=== PATIENT | female | born 1960 | race Caucasian/White ===

== ENCOUNTER 2016-06-24 10:21 | Outpatient (CLI) | payer MEDICARE, MEDICAID ==
[~2016-06-24 10:21] MED LIST: B-12 5,000 MCG1 EACH SL; CALCIUM + VITA1 EAC2 PO; COENZYME Q10 PO; DIOVAN80 MG ORAL; GLUCOPHAGE500 MG ORAL; IBUPROFEN600 MG ORAL; IRON325 M1 PO; LEXAPRO20 MG ORAL; LOPID600 MG ORAL; MULTI VITAMIN1 EACH PO; OMEPRAZOLE20 M2 PO; PROBIOTIC1 EAC1 PO; PROTONIX40 MG ORAL; TAMOXIFEN CITRA10 MG PO; TRULICITY0.75 MG/0. SQ
--- NOTE | 2016-06-24 14:11 | Diagnostic Imaging Report ---
Indication: Osteopenia Technique: Transaxial images of the L1, L2, and L3 vertebral bodies obtained in a Siemens sensation [address] Regions of interest were drawn for both cortical and medullary portions of the bone. Average bone then calculated. Total Dose length Product (DLP): [address] Dose Index Volume (CTDIvol): Support 4, 4.5, 4.9, 5.7, 4.7 mGy Findings: The patient's bone mineral density is 247 mg Ca-TAI/ml. The T score is 3.2 this means that the patient's average bone mineral density is 3.2 standard deviations less than a typical 20-year-old female. The patient's Z score is 5.2. This means that the patient's average bone mineral density is 5.2 standard deviations greater than age-matched controls. Impression: Bone Mineral density no more than 10% below a normal 20 year old female. Patient is considered normal by WHO criteria. Insufficiency fracture risk is low. The CT scanner at [facility] is accredited by the [employer] and the scans are performed using protocols designed to limit radiation exposure to as low as reasonably achievable to attain images of sufficient resolution adequate for diagnostic evaluation.
== END 2016-06-24 12:00 | disposition home or self-care (01) ==
LOC: CAT 10:21
DX: M81.0 Age-related osteoporosis without current pathological fracture (principal); M25.569 Pain in unspecified knee
CPT/HCPCS: 77078

== ENCOUNTER 2016-07-01 11:34 | Emergency (ER) | payer MEDICARE, MEDICAID ==
[~2016-07-01] VITALS: Ht 165.1 cm; Wt 81.6 kg
--- NOTE | 2016-07-01 12:18 | Emergency Room Report ---
History of Present Illness General Chief Complaint: Upper Extremity Injury Source: Patient (Lizz Canales) Present Illness HPI 55-year-old female presents emergency department complaining of 8/10 in severity right wrist pain and swelling x3 days. Patient denies trauma or fall. Patient reports history of osteoporosis. Patient denies bruising, erythema, increased temperature palpation. Patient states pain is exacerbated upon bending the right wrist or complete straightening of the right wrist. Patient denies lesions, bleeding, skin color changes. Patient states she took to 200 mg ibuprofen this a.m. without relief.Denies numbness tingling or loss of sensation or gross motor movements of the extremities, incontinence of bowel or bladder. Denies CP, Palpitations, LOC, AMS, dizziness, Changes in Vision, Sensation, paresthesias, or a sudden severe headache. (Lizz Canales) Allergies: Coded Allergies: SULFA (SULFONAMIDE ANTIBIOTICS) (Verified Allergy, Mild, RASH, 02/28/11) PENICILLINS (Verified Allergy, Unknown, 07/21/12) RASH LATEX (Verified Allergy, Itching, 07/21/12) Patient History Past Medical History: see triage record Past Surgical History: none Pertinent Family History: none Now: No Immunizations: UTD Reviewed Nursing Documentation: PMH: Agreed, PSxH: Agreed (Lizz Canales) Nursing Documentation-PMH Hx Cardiac Problems: No Hx Hypertension: Yes - high cholesterol Hx Pacemaker: No Hx Asthma: No Hx COPD: No Hx Diabetes: No Hx Cancer: No Hx Gastrointestinal Problems: No Hx Dialysis: No History Of Psychiatric Problem: No Hx Neurological Problems: No Hx Cerebrovascular Accident: No Hx Seizures: No (Lizz Canales) Review of Systems All Other Systems: negative except mentioned in HPI (Lizz Canales) Physical Exam Vital Signs Date Time Temp Pulse Resp B/P Pulse Ox O2 Delivery O2 Flow Rate FiO2 07/01/16 11:51 98.1 82 16 130/70 98 Sp02 EP Interpretation: reviewed, normal General Appearance: no apparent distress, alert, GCS 15, non-toxic Head: normocephalic, atraumatic Eyes: bilateral eye PERRL, bilateral eye normal inspection ENT: hearing grossly normal, normal pharynx, no angioedema, normal voice Neck: full range of motion, supple/symm/no masses Respiratory: chest non-tender, lungs clear, normal breath sounds, speaking full sentences Cardiovascular #1: regular rate, rhythm, no edema Cardiovascular #2: 2+ radial (R), 2+ radial (L) Musculoskeletal: back normal, gait/station normal, normal range of motion, tender - TTP to the volar right wrist, mild swelling noted, no bruises, no obvious deformity, good cap. refill, sensation and pulses intact. FROM with pain of flexion. Neurologic: alert, oriented x3, responsive, motor strength/tone normal, sensory intact, speech normal Psychiatric: judgement/insight normal, memory normal, mood/affect normal Skin: normal color, no rash, warm/dry, well hydrated (Lizz Canales) Medical Decision Making PA Attestation Dr. Frances is my supervising Physician whom patient management has been discussed with. (Lizz Canales) Diagnostic Impression: Primary Impression: Calcification of soft tissue Additional Impression: Wrist pain, right ER Course Pt. presents to the ED c/o right wrist pain and swelling x3 days denies trauma or fall. Ddx considered but are not limited to Fracture, dislocation, contusion, Sprain/ Strain/Spasm, Epidural abscess, Neoplastic mets. Vital signs: are WNL, pt. is afebrile H&PE are most consistent with tendonitis of right wrist. will r/o fractures with imaging. ORDERS: - X-ray Right wrist 3 views - negative for fx, Dislocation, or significant soft tissue injury, per preliminary read in ED by Dr. Frances ED INTERVENTIONS: - 650mg Tylenol PO - Right wrist Splint applied by technical rep. Pt. remains neurovascularly intact. DISCHARGE: At this time pt. is stable for d/c to home. Will provide printed patient care instructions, and any necessary prescriptions. Care plan and follow up instructions have been discussed with the patient prior to discharge. (Lizz Canales) ER Course Scribe documentation reviewed by me and is accurate. (Miguel Frances M.D.) Last Vital Signs Date Time Temp Pulse Resp B/P Pulse Ox O2 Delivery O2 Flow Rate FiO2 07/01/16 11:51 98.1 82 16 130/70 98 (Lizz Canales) Disposition: HOME, SELF-CARE Condition: Stable Scripts Acetaminophen* (TYLENOL EXTRA STRENGTH*) 500 Mg Tablet 500 MG ORAL Q6H, #20 TAB 0 Refills Prov: Lizz Canales 07/01/16 Patient Instructions: Wrist Sprain, WRIST SPLINT, Velcro Additional Instructions: Take medications as directed. Follow up with PCP in 3-5 days Return sooner to ED if new symptoms occur, or current symptoms become worse. - Please note that this Emergency Department Report was dictated using [employer] sprinkler inspector technology software, occasionally this can lead to erroneous entry secondary to interpretation by the dictation equipment. Lizz Canales July 01, 2016 12:18 Miguel Frances M.D. July 01, 2016 21:33
[2016-07-01] MEDS ORDERED: TYLENOL EXTRA500 MG ORAL (13:01)
[2016-07-01 13:17] VITALS: BP 120/80
--- NOTE | 2016-07-01 13:36 | Diagnostic Imaging Report ---
Indications: Nontraumatic right wrist pain and swelling Technique: 3 views right wrist. Findings: Comparison: None Soft tissues are mildly, diffusely swollen. No fracture, dislocation, joint space widening , lytic destruction, periosteal reaction , soft tissue foreign body/gas, or other acute changes are identified. A cluster of calcifications is present within the soft tissues immediately volar to the distal radius. No arthritic or other chronic changes are demonstrated. IMPRESSION: Diffuse soft tissue swelling, nonspecific No other evidence of acute abnormality Volar soft tissue calcifications, nonspecific, may be dystrophic secondary to previous trauma or inflammation, or represent calcified soft tissue mass. Elective MRI may be of benefit in further evaluation, as clinically indicated..
== END 2016-07-01 13:20 | disposition home or self-care (01) ==
LOC: EMR 12:35
DX: M61.48 Other calcification of muscle, other site (principal); M25.531 Pain in right wrist; I10 Essential (primary) hypertension; Z88.2 Allergy status to sulfonamides; Z88.0 Allergy status to penicillin; Z91.040 Latex allergy status
CPT/HCPCS: 29260; 99283

== ENCOUNTER 2016-07-09 10:45 | Outpatient (CLI) | payer MEDICARE, MEDICAID ==
[~2016-07-09 10:45] MED LIST changes: +TYLENOL EXTRA500 MG ORAL
--- NOTE | 2016-07-09 14:09 | Diagnostic Imaging Report ---
Indication: Knee pain Technique: MRI of the right knee was imaged in a 1.5 Elayne magnet. Pulse sequences obtained include coronal T1 fast spin-echo, STIR, sagittal coronal and axial proton fast spin-echo with fat saturation, sagittal proton fast spin-echo. Comparison: None Findings: There is no joint effusion. The contour of the medial and lateral menisci appear normal. There is some internal signal within the menisci but there is no evidence of a tear. Bone marrow signal normal. Anterior and posterior cruciate ligaments are unremarkable in appearance. Medial collateral ligamentous complex and lateral lateral ligamentous complex appear normal. Articular cartilage is relatively well-preserved. Patellofemoral compartment is unremarkable. Extensor tendons are unremarkable. Impression: No internal derangement. Negative exam
--- NOTE | 2016-07-09 14:11 | Diagnostic Imaging Report ---
Indication: Knee pain Technique: MRI of the left knee was imaged in a 1.5 Elayne magnet. Pulse sequences obtained include coronal T1 fast spin-echo, STIR, sagittal coronal and axial proton fast spin-echo with fat saturation, sagittal proton fast spin-echo. Comparison: None Findings: Bone marrow signal and alignment appear normal. Articular cartilage is well preserved. There is no joint effusion or popliteal cyst. The menisci appear normal. Anterior posterior cruciate ligaments, extensor tendon mechanism, medial collateral ligament and lateral collateral structures are normal. There is no evidence of an osteochondral defect. Impression: Negative examination of the left knee
== END 2016-07-09 12:45 | disposition home or self-care (01) ==
LOC: MRI 10:45
DX: M25.562 Pain in left knee (principal); M25.561 Pain in right knee

== ENCOUNTER 2016-12-30 10:52 | Outpatient (CLI) | payer MEDICARE, MEDICAID ==
[2016-12-30 11:01] VITALS: BP 113/70
--- NOTE | 2016-12-30 14:09 | GI Initial Consult Note ---
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 The patient complains of heartburn, dysphagia when eating solid foods. States she is able to take thin and thick fluids down. Denies any cough or aspiration. Patient last colonoscopy was performed in 2013 with polypectomy x 4. The patient stated she had either a video swallow study at [facility] last week , but the results were unremarkable and that is the reason for her visit today. Home Meds Active Scripts Acetaminophen* (TYLENOL EXTRA STRENGTH*) 500 Mg Tablet, 500 MG ORAL Q6H, #20 TAB 0 Refills Prov:Lizz Canales 07/01/16 Ibuprofen* (MOTRIN*) 600 Mg Tablet, 600 MG ORAL Q8H Y for For Pain, #14 TAB Prov:EMMANUELLE HORNE M.D. 09/02/13 Reported Medications Pantoprazole* (PROTONIX*) 40 Mg Tablet.dr, 40 MG ORAL DAILY, TAB 09/13/15 Dulaglutide (Trulicity) 0.75 Mg/0.5 Ml Pen.injctr, 0.75 MG SQ ONCE A WEEK, EA 09/13/15 Calcium Carb & Cit/Vitamin D3 (CALCIUM + VITAMIN D3 CAPLET) 1 Each Tablet.er, 1 EACH PO 07/21/12 Cyanocobalamin/Cobamamide (B-12 5,000 MCG SUBLINGUAL TAB) 1 Each Tab.subl, 1 EACH SL 07/21/12 Ubidecarenone/Vitamin E Mixed (COQ10 SG 100 SOFTGEL) 1 Each Capsule, 1 EACH PO 07/21/12 Omeprazole (OMEPRAZOLE) 20 Mg Capsule.dr, 20 MG PO DAILY 06/04/12 Escitalopram Oxalate* (LEXAPRO*) 20 Mg Tablet, 20 MG ORAL DAILY, #10 TAB 06/04/12 Ferrous Sulfate (IRON) 325 Mg Tablet, 325 MG PO DAILY 06/04/12 Multivitamin (MULTI VITAMIN DAILY) 1 Each Tablet, 1 EACH PO DAILY 06/04/12 Lactobacillus Rhamnosus Gg (PROBIOTIC) 1 Each Capsule, 1 EACH PO DAILY 06/04/12 Valsartan (DIOVAN) 80 Mg Tab, 80 MG ORAL DAILY 06/04/12 Gemfibrozil* (LOPID*) 600 Mg Tablet, 600 MG ORAL TWICE A DAY, #20 TAB 06/04/12 Metformin Hcl* (GLUCOPHAGE*) 500 Mg Tablet, 1000 MG ORAL TWICE A DAY, #20 TAB 06/04/12 Tamoxifen Citrate* (NOLVADEX*) 10 Mg Tablet, 20 MG PO DAILY 06/04/12 Med list reviewed/reconciled: Yes Allergies: Coded Allergies: SULFA (SULFONAMIDE ANTIBIOTICS) (Verified Allergy, Mild, RASH, 02/28/11) PENICILLINS (Verified Allergy, Unknown, 07/21/12) RASH LATEX (Verified Allergy, Itching, 07/21/12) Patient History PMH Narrative HTN, Depression sleep apnea DM Breast CA Past Surgical History: Chemo 2008 Family History Narrative Mother >> leukemia, iron deficiency sister >> colon CA Social History: Reports: other - coffee Review of Systems All Other Systems: negative except mentioned in HPI Physical Exam T 98.3 BP 113/70 P 85 93 RA Sp02 EP Interpretation: reviewed, normal General Appearance: well appearing, no apparent distress, alert Head: normocephalic EENT: PERRL/EOMI, normal ENT inspection Neck: supple Respiratory: normal breath sounds, no respiratory distress Cardiovascular: normal rate Gastrointestinal: normal inspection, non tender, soft, normal bowel sounds, non -distended Rectal: deferred Genitourinary: no CVA tenderness Musculoskeletal: normal inspection, back normal Neurologic: normal inspection, alert, oriented x3, responsive Psychiatric: normal inspection, judgement/insight normal, memory normal Skin: normal inspection, normal color, no rash, warm/dry, palpation normal, well hydrated Lymphatic: normal inspection, no adenopathy GI: Plan Problems: (1) Dysphagia (2) GERD (gastroesophageal reflux disease) (3) Encounter for diagnostic endoscopy (4) Family hx of colon cancer Plan hx of colonic polyps EGD/colonoscopy scheduled for 01/05/17 - CLD & (Nulytely/Suprep/Moviprep) prep instructions given and acknowledged by patient. - NPO @ [place] day prior procedure explained. Seen with Dr. Mishra. Thank you for this patient referral. Elvia Castellanos N.P. Dec 30, 2016 14:09
== END 2016-12-30 11:50 | disposition home or self-care (01) ==
LOC: PAN 10:52
DX: R13.10 Dysphagia, unspecified (principal); K21.9 Gastro-esophageal reflux disease without esophagitis; Z80.0 Family history of malignant neoplasm of digestive organs; Z88.2 Allergy status to sulfonamides; Z88.0 Allergy status to penicillin; Z91.040 Latex allergy status; Z80.6 Family history of leukemia; I10 Essential (primary) hypertension; F32.9 Major depressive disorder, single episode, unspecified; G47.30 Sleep apnea, unspecified; E11.9 Type 2 diabetes mellitus without complications; Z85.3 Personal history of malignant neoplasm of breast
CPT/HCPCS: 99201

== ENCOUNTER 2017-01-05 10:15 | Day surgery (SDC) | payer MEDICARE, MEDICAID ==
[~2017-01-05] VITALS: Ht 157.5 cm; Wt 79.4 kg
[2017-01-05] VITALS (8 sets, daily range): BP systolic 95–121; BP diastolic 53–72
--- NOTE | 2017-01-05 06:51 | Anethesia Preoperative Eval ---
Anesthesia Pre-op PMH/ROS General Date of Evaluation: Jan 05, 2017 Time of Evaluation: 06:48 Anesthesiologist: dwight ASA Score: ASA 3 Mallampati Score Class I : Soft palate, uvula, fauces, pillars visible Class II: Soft palate, uvula, fauces visible Class III: Soft palate, base of uvula visible Class IV: Only hard plate visible Mallampati Classification: Class II Surgeon: jojo Diagnosis: dysphagia, hx/o colon polyps Surgical Procedure: egd/colonoscopy Anesthesia History: none Social History: smoking - nonsmoker Family History: no anesthesia problems Allergies: Coded Allergies: LACTOSE (Verified Allergy, Intermediate, diarhea, 01/05/17) LATEX (Verified Allergy, Intermediate, Itching, 01/05/17) SULFA (SULFONAMIDE ANTIBIOTICS) (Verified Allergy, Mild, RASH, 02/28/11) PENICILLINS (Verified Allergy, Unknown, 07/21/12) RASH TETRACYCLINES (Verified Allergy, Unknown, 01/05/17) Medications: see eMAR Past Medical History Pulmonary: Reports: CANDICE, other - bronchitis Gastrointestinal/Genitourinary: Reports: GERD, other - dysphagia, hx/o colon polyps, gastritis Endocrine: Reports: DM Hematology/Immune: Reports: anemia, other - breast cancer Musculoskeletal/Integumentary: Reports: OA Other: obesity Anesthesia Pre-op Phys. Exam Physician Exam Constitutional: NAD Neurologic: CN 2-12 intact Cardiovascular: RRR Respiratory: CTA Gastrointestinal: S/NT/ND Airway Exam Mallampati Score: Class II MO: full Neck: supple TMD: 2fb ROM: limited Anesthesia Pre-op A/P Risk Assessment & Plan Assessment: asa3 Plan: mac Status Change Before Surgery: No Pre-Antibiotics Drug: OLIVIA Culp Jan 05, 2017 06:51
--- NOTE | 2017-01-05 10:49 | Short Stay Surgery H&P ---
History of Present Illness History of Present Illness Chief Complaint see recent consult note HPI Kelly Palmer is a 56 year old female who was admitted on for Dysphegia/ Hx Of Colon Polyps Patient History Allergies: Coded Allergies: LACTOSE (Verified Allergy, Intermediate, diarhea, 01/05/17) LATEX (Verified Allergy, Intermediate, Itching, 01/05/17) SULFA (SULFONAMIDE ANTIBIOTICS) (Verified Allergy, Mild, RASH, 02/28/11) PENICILLINS (Verified Allergy, Unknown, 07/21/12) RASH TETRACYCLINES (Verified Allergy, Unknown, 01/05/17) PAST MEDICAL HISTORY: Past Surgeries: Relevant Family History: Colon cancer Social History: Medication History Scheduled Acetaminophen* (Tylenol Extra Strength*), 500 MG ORAL Q6H Dulaglutide (Trulicity), 0.75 MG SQ ONCE A WEEK, (Reported) Escitalopram Oxalate* (Lexapro*), 20 MG ORAL DAILY, (Reported) Ferrous Sulfate (Iron), 325 MG PO DAILY, (Reported) Gemfibrozil* (Lopid*), 600 MG ORAL TWICE A DAY, (Reported) Lactobacillus Rhamnosus Gg (Probiotic), 1 EACH PO DAILY, (Reported) Metformin Hcl* (Glucophage*), 1,000 MG ORAL TWICE A DAY, (Reported) Multivitamin (Multi Vitamin Daily), 1 EACH PO DAILY, (Reported) Omeprazole (Omeprazole), 20 MG PO DAILY, (Reported) Pantoprazole* (Protonix*), 40 MG ORAL DAILY, (Reported) Tamoxifen Citrate* (Nolvadex*), 20 MG PO DAILY, (Reported) Valsartan (Diovan), 80 MG ORAL DAILY, (Reported) Scheduled PRN Ibuprofen* (Motrin*), 600 MG ORAL Q8H PRN for For Pain Miscellaneous Medications Calcium Carb & Cit/Vitamin D3 (Calcium + Vitamin D3 Caplet), 1 EACH PO, ( Reported) Cyanocobalamin/Cobamamide (B-12 5,000 Mcg Sublingual Tab), 1 EACH SL, (Reported) Ubidecarenone/Vitamin E Mixed (Coq10 Sg 100 Softgel), 1 EACH PO, (Reported) Plan Attestation Are the patient's medical conditions optimized for surgery? REBEKA FOUNTAIN Jan 05, 2017 10:49
--- NOTE | 2017-01-05 10:50 | Pre-Procedure Note/Attestation ---
Pre-Procedure Note/Attestation Complete Prior to Procedure Planned Procedure: not applicable Procedure Narrative: esophagogastroduodenoscopy and colonoscopy Indications for Procedure Pre-Operative Diagnosis: dysphagia, screening colon Attestation I attest that I discussed the nature of the procedure; its benefits; risks and complications; and alternatives (and the risks and benefits of such alternatives ), prior to the procedure, with the patient (or the patient's legal pharmaceutical sales representative). I attest that, if there was a reasonable possibility of needing a blood transfusion, the patient (or the patient's legal pharmaceutical sales representative) was given the [facility] standardized written summary, pursuant to the [employer] Blood Safety Act ([place] Health and Safety Code # 1645, as amended). I attest that I re-evaluated the patient just prior to the surgery and that there has been no change in the patient's H&P, except as documented below: REBEKA FOUNTAIN Jan 05, 2017 10:50
[2017-01-05] MEDS ORDERED: Lidocaine 1% MPF 10mg/ml 5ml ONE (11:00)
[2017-01-05] MEDS ORDERED: Propofol 200mg/20ml IV ONE (11:00)
--- NOTE | 2017-01-05 12:09 | Endoscopy Procedure Note ---
Endoscopy Procedure Note Indication for Procedure: screening colon, GERD Procedures Performed: EGD, colonoscopy Operative Findings/Diagnosis: 3 colon polyps, gastritis Specimen: yes Pt Tolerated Procedure Well: Yes Estimated Blood Loss: none Anesthesiologist: sung Anesthesia: MAC Implant(s) used?: No 50 yrs or older w/o bx or poly: No 10yrs. F/U not recommended: Yes If not recommended, why?: Above average risk 10 yrs. F/U needed: Yes 18 years or older w/prev. colo: No REBEKA FOUNTAIN Jan 05, 2017 12:09
--- NOTE | 2017-01-05 13:11 | Immediate Post-Op Evaluation ---
Immediate Post-Op Evalulation Immediate Post-Op Evalulation Procedure: egd/colonoscopy Date of Evaluation: Jan 05, 2017 Time of Evaluation: 12:25 IV Fluids: 750ml 0.9ns Blood Products: none Estimated Blood Loss: negligible Blood Pressure Systolic: 100 Blood Pressure Diastolic: 54 Pulse Rate: 79 Respiratory Rate: 18 O2 Sat by Pulse Oximetry: 100 Temperature (Fahrenheit): 98.9 Pain Score (1-10): 0 Nausea: No Vomiting: No Complications none Patient Status: awake, reacts, patent Hydration Status: adequate Drug: OLIVIA Culp Jan 05, 2017 13:11
--- NOTE | 2017-01-05 13:12 | 48 Hour Post Anesthesia Eval ---
Post Anesthesia Evaluation Procedure: egd/colonoscopy Date of Evaluation: Jan 05, 2017 Time of Evaluation: 13:11 Blood Pressure Systolic: 111 0: 55 Pulse Rate: 77 Respiratory Rate: 18 Temperature (Fahrenheit): 98.9 O2 Sat by Pulse Oximetry: 100 Airway: patent Nausea: No Vomiting: No Pain Intensity: 0 Hydration Status: adequate Cardiopulmonary Status: stable Mental Status/LOC: patient returned to baseline Post-Anesthesia Complications: none Follow-up care needed: N/A OLIVIA MYERS Jan 05, 2017 13:12
[2017-01-05] MEDS ORDERED: fentaNYL 100 mcg/2 mL IV PRN (13:15)
[2017-01-05] MEDS ORDERED: Midazolam 2mg/2ml Inj IVP PRN (13:15)
[2017-01-05] MEDS ORDERED: DiphenhydrAMINE 50mg/ml Inj IVP PRN (13:15)
[2017-01-05] MEDS ORDERED: Atropine Inj 1mg/10ml Syr IV PRN (13:15)
--- NOTE | 2017-01-05 17:00 | Procedure Note ---
DATE OF PROCEDURE: 01/05/2017 SURGEON: Doron Mishra M.D. PROCEDURE: Upper endoscopy with biopsy and colonoscopy with snare polypectomy and biopsy. ANESTHESIA: Per Dr. Hale. INSTRUMENT: Olympus adult flexible upper endoscope and colonoscope. INDICATION: Screening colonoscopy evaluation, chronic GERD, and abdominal pain. The procedure, risks, benefits, and possible consequences, including hemorrhage, aspiration, perforation and infection, and alternative treatments, were explained to the patient/legal guardian by Dr. Doron Mishra and the patient/legal guardian understood and accepted these risks. DESCRIPTION OF PROCEDURE: After informed consent was obtained and the patient was adequately sedated, Olympus upper endoscope was advanced from mouth into the second portion of duodenum and retroflexion was performed in the stomach. The patient had diffuse atrophic gastritis. One polyp was seen in the body of the stomach, which was removed with the cold biopsy forceps technique. Also biopsy from the body and antrum was obtained to rule out H. pylori infection. At this time, the upper endoscope was retrieved and the patient was turned over for colonoscopy. First, a rectal exam was performed, which was normal. Then, the scope was advanced from the rectum into the cecum documented by appendiceal orifice, ileocecal valve, and right upper quadrant palpation. Quality of prep was good. The patient had three flat polyps, two in the transverse colon and one in the descending colon. Two of them, one in the descending and one in the transverse were removed with the snare polypectomy technique. These are flat, less than 1 cm and another polyp in the transverse colon, which was measured about 5 mm, was removed with the cold biopsy forceps technique. The rest of the exam grossly within normal limits. Retroflexion of rectum showed evidence of internal hemorrhoids. SUMMARY OF FINDINGS: 1. Atrophic gastritis, status post biopsy. 2. One gastric polyp removed. See above for details. 3. Three colonic polyps removed. See above for details. 4. Internal hemorrhoids. RECOMMENDATIONS: Follow up biopsies and treat accordingly. Doron Mishra M.D. DR: JASPAL JOB#: [id number] CC:
--- NOTE | 2017-01-06 15:42 | Cardiology Report ---
APPROVED REPORT EKG Measurement Heart [id number] VT [id number] Normal sinus rhythm Prolonged QT Abnormal ECG
== END 2017-01-05 13:35 | disposition home or self-care (01) ==
LOC: GAS 10:15
DX: Z12.11 Encounter for screening for malignant neoplasm of colon (principal); K21.9 Gastro-esophageal reflux disease without esophagitis; R10.9 Unspecified abdominal pain; K29.40 Chronic atrophic gastritis without bleeding; K31.7 Polyp of stomach and duodenum; K63.5 Polyp of colon; K64.8 Other hemorrhoids; G47.33 Obstructive sleep apnea (adult) (pediatric); E11.9 Type 2 diabetes mellitus without complications; Z85.3 Personal history of malignant neoplasm of breast; M19.90 Unspecified osteoarthritis, unspecified site; Z88.2 Allergy status to sulfonamides; Z88.0 Allergy status to penicillin; Z91.040 Latex allergy status; Z91.011 Allergy to milk products
CPT/HCPCS: 43239; 45380; 82962; 93005; J0171; J2704; 94003; 94150

== ENCOUNTER 2017-01-27 10:30 | Outpatient (CLI) | payer MEDICARE, MEDICAID ==
[2017-01-27 10:30] VITALS: BP 122/76
--- NOTE | 2017-01-27 11:24 | GI Progress Note ---
Assessment/Plan Problems: (1) GERD (gastroesophageal reflux disease) ICD Codes: K21.9 - Gastro-esophageal reflux disease without esophagitis SNOMED: 531217336 (2) Dysphagia ICD Codes: R13.10 - Dysphagia, unspecified SNOMED: 62537505, 651228742 (3) Family hx of colon cancer ICD Codes: Z80.0 - Family history of malignant neoplasm of digestive organs SNOMED: 808468275 Status: stable Status Narrative Seen with Dr. Mishra. Assessment/Plan EGD/colonoscopy SUMMARY OF FINDINGS reviewed with patient: 1. Atrophic gastritis, status post biopsy. 2. One gastric polyp removed. See above for details. 3. Three colonic polyps removed. See above for details. 4. Internal hemorrhoids. RECOMMENDATIONS: Follow up biopsies and treat accordingly. >> unremarkable cont PPI Rx baclofen 10 mg qhs RTC x 3 months/PRN Subjective Subjective GERD dysphagia with slight improvement, states she had a video swallow that showed reflux. R hand wart EGD/colonoscopy review Objective T 98.3 BP 122/78 P 81 General Appearance: WD/WN, no apparent distress, alert Cardiovascular: normal rate Respiratory/Chest: normal breath sounds, no respiratory distress Abdominal Exam: normal bowel sounds, non tender, soft Extremities: normal range of motion, non-tender Elvia Castellanos N.P. Jan 27, 2017 11:24
== END 2017-01-27 11:05 | disposition home or self-care (01) ==
LOC: PAN 10:30
DX: K21.9 Gastro-esophageal reflux disease without esophagitis (principal); R13.10 Dysphagia, unspecified; Z80.0 Family history of malignant neoplasm of digestive organs; K29.40 Chronic atrophic gastritis without bleeding; K63.5 Polyp of colon; K64.8 Other hemorrhoids
CPT/HCPCS: 99212

== ENCOUNTER 2017-06-18 14:13 | Outpatient (CLI) | payer MEDICARE, MEDICAID ==
--- NOTE | 2017-06-18 15:22 | GI Progress Note ---
Assessment/Plan Problems: (1) Diarrhea ICD Codes: R19.7 - Diarrhea, unspecified SNOMED: 69631332 (2) Black stool ICD Codes: K92.1 - Melena SNOMED: 221563394 (3) GERD (gastroesophageal reflux disease) ICD Codes: K21.9 - Gastro-esophageal reflux disease without esophagitis SNOMED: 663977478 Status: stable Status Narrative Seen with Dr. Mishra. Assessment/Plan lactose free diet black stools from medication rx Align RTC x 3 months or if diarrhea persists Subjective Subjective diarrhea multiple times past few days, black stools currently on Ferrous sulfate, pepto bismo nausea GERD, taking pepcid had EGD/colonoscopy last year 2016 Objective T 98.4 BP 127/74 P 96 96 RA General Appearance: WD/WN, no apparent distress, alert Cardiovascular: normal rate Respiratory/Chest: normal breath sounds, no respiratory distress Abdominal Exam: normal bowel sounds, non tender, soft Extremities: normal range of motion, non-tender Elvia Castellanos N.P. June 18, 2017 15:22
== END 2017-06-18 14:45 | disposition home or self-care (01) ==
LOC: PAN 14:13
DX: K21.9 Gastro-esophageal reflux disease without esophagitis (principal); K92.1 Melena; R19.7 Diarrhea, unspecified
CPT/HCPCS: 99211

== ENCOUNTER 2017-11-25 09:28 | Day surgery (SDC) | payer MEDICARE, MEDICAID ==
[~2017-11-25] VITALS: Ht 157.5 cm; Wt 76.2 kg
[2017-11-25] VITALS (10 sets, daily range): BP systolic 101–130; BP diastolic 66–80
--- NOTE | 2017-11-25 08:25 | Anethesia Preoperative Eval ---
Anesthesia Pre-op PMH/ROS General Date of Evaluation: Nov 25, 2017 Time of Evaluation: 10:50 Anesthesiologist: Arleth ASA Score: ASA 2 Mallampati Score Class I : Soft palate, uvula, fauces, pillars visible Class II: Soft palate, uvula, fauces visible Class III: Soft palate, base of uvula visible Class IV: Only hard plate visible Mallampati Classification: Class I Surgeon: Shadia Diagnosis: endometrial hyperplasia Surgical Procedure: D&C , hysteroscopy Anesthesia History: none Family History: no anesthesia problems Allergies: Coded Allergies: LACTOSE (Verified Allergy, Intermediate, diarhea, 01/05/17) LATEX (Verified Allergy, Intermediate, Itching, 01/05/17) SULFA (SULFONAMIDE ANTIBIOTICS) (Verified Allergy, Mild, RASH, 02/28/11) PENICILLINS (Verified Allergy, Unknown, 07/21/12) RASH TETRACYCLINES (Verified Allergy, Unknown, 01/05/17) Medications: see eMAR Patient NPO?: Yes NPO Date: Nov 24, 2017 NPO Time: 20:00 Past Medical History Cardiovascular: Reports: HTN Pulmonary: Reports: CANDICE - uses CPAP Gastrointestinal/Genitourinary: Reports: GERD Neurologic/Psychiatric: Denies: dementia, CVA, depression/anxiety, TIA, other Endocrine: Reports: DM HEENT: Reports: other; Denies: cataract (L), cataract (R), glaucoma, ATKA (L), ATKA (R) Hematology/Immune: Reports: other - Left side breast cancer Musculoskeletal/Integumentary: Reports: OA - knees, arms, other - sciatica PSxH Narrative: fibroids removed, left breast mastectomy Anesthesia Pre-op Phys. Exam Physician Exam Constitutional: NAD Neurologic: CN 2-12 intact Cardiovascular: RRR Respiratory: CTA Gastrointestinal: S/NT/ND Airway Exam Mallampati Score: Class I MO: full Neck: can extend wihtout issues ROM: full Teeth: intact Anesthesia Pre-op A/P Labs chart reviewed Accucheck BS = 139 Urine Test menopause Studies Pre-op Studies: EKG - NSR = 75 bpm Risk Assessment & Plan Assessment: A&Ox 4 Plan: General LMA Status Change Before Surgery: Carmen Mckeon CRNA Nov 25, 2017 08:25
--- NOTE | 2017-11-25 08:30 | Immediate Post-Op Evaluation ---
Immediate Post-Op Evalulation Immediate Post-Op Evalulation Procedure: D&C, hysteroscopy Date of Evaluation: Nov 25, 2017 Time of Evaluation: 12:35 IV Fluids: LR 800 ml Blood Products: 0 Estimated Blood Loss: 5 ml Urinary Output: 400ml via straight cath begnning of the case Blood Pressure Systolic: 130 Blood Pressure Diastolic: 80 Pulse Rate: 92 Respiratory Rate: 20 O2 Sat by Pulse Oximetry: 97 Temperature (Fahrenheit): 99 Pain Score (1-10): 0 Nausea: No Vomiting: No Complications none Patient Status: awake, reacts, patent Hydration Status: adequate Drug: Mefoxin 2 gm iv Given Within 1 Hr of Incision: Yes Time Given: 12:00 Carmen Reinoso CRNA Nov 25, 2017 08:30
[~2017-11-25 09:28] MED LIST changes: +B-12 5,000 MCG1 EACH PO; -B-12 5,000 MCG1 EACH SL; +LOSARTAN POTASS25 MG ORAL; +Lidocaine 1% MPF 10mg/ml 5ml ONE; +Propofol 200mg/20ml IV ONE; +cefOXitin Sod 2 GM in D5W 110 ML IVPB ONE
[2017-11-25] MEDS ORDERED: fentaNYL 100 mcg/2 mL IV ONE (10:11)
[2017-11-25] MEDS ORDERED: Midazolam 2mg/2ml Inj ONE (10:11)
[2017-11-25] MEDS ORDERED: PEPCID AC10 MG PO (10:53)
[2017-11-25] MEDS ORDERED: ONGLYZA5 MG PO (10:53)
[2017-11-25] MEDS ORDERED: GARLIC1 EAC1 PO (10:54)
[2017-11-25] MEDS ORDERED: fish oil PO (10:55)
[2017-11-25] MEDS ORDERED: NS Irrig 1000ml ONE (11:00)
[2017-11-25] MEDS ORDERED: LR 1000ml ONE (11:00)
[2017-11-25] MEDS ORDERED: Sterile Water Irrig 1000ml IRRIG ONE (11:00)
[2017-11-25] MEDS ORDERED: cefOXitin 2gm Inj ONE (11:46)
[2017-11-25] MEDS ORDERED: Silver Nitrate Stick TOPIC ONE (12:22)
[2017-11-25] MEDS ORDERED: D5 1/2NS 1,000 ML IV SCH ×2 (12:30→12:45)
[2017-11-25] MEDS ORDERED: Norco 5mg/325mg tab ORAL PRN ×2 (12:30→12:45)
--- NOTE | 2017-11-25 13:22 | 48 Hour Post Anesthesia Eval ---
Post Anesthesia Evaluation Procedure: D&C, hysteroscopy Date of Evaluation: Nov 25, 2017 Time of Evaluation: 13:20 Blood Pressure Systolic: 123 0: 78 Pulse Rate: 88 Respiratory Rate: 20 Temperature (Fahrenheit): 99 O2 Sat by Pulse Oximetry: 99 Airway: patent Nausea: No Vomiting: No Hydration Status: adequate Mental Status/LOC: patient returned to baseline Post-Anesthesia Complications: none noted Follow-up care needed: patient intructions given Carmen Reinoso CRNA Nov 25, 2017 13:22
--- NOTE | 2017-11-29 22:23 | Pre-Procedure Note/Attestation ---
Pre-Procedure Note/Attestation Complete Prior to Procedure Planned Procedure: not applicable Procedure Narrative: Hysteroscopy, D&C, Endometrial Polypectomy - multiple Indications for Procedure Pre-Operative Diagnosis: Endometrial polyp Attestation I attest that I discussed the nature of the procedure; its benefits; risks and complications; and alternatives (and the risks and benefits of such alternatives ), prior to the procedure, with the patient (or the patient's legal wine sales representative). I attest that, if there was a reasonable possibility of needing a blood transfusion, the patient (or the patient's legal wine sales representative) was given the [facility] standardized written summary, pursuant to the Rick Abel Blood Safety Act ([place] Health and Safety Code # 1645, as amended). I attest that I re-evaluated the patient just prior to the surgery and that there has been no change in the patient's H&P, except as documented below:NONE ELDA GARCÍA Nov 29, 2017 22:23
--- NOTE | 2017-11-29 22:25 | Brief Operative Note ---
Immediate Post Operative Note Operative Note Pre-op Diagnosis: Endometrial polyp Procedure: D&C, Hysteroscopy, ECC, EMC, Multiple Polypectomy Post-op Diagnosis: Multiple Endometrial Polyps Post-op Diagnosis: same as pre-op Findings: consistent w/pre-op dx studies Surgeon: Elda García MD Anesthesia: general Specimen: yes Complications: none Condition: stable Fluids: LR @ 100 cc / hr Estimated Blood Loss: minimal Implant(s) used?: No ELDA GARCÍA Nov 29, 2017 22:25
--- NOTE | 2017-11-30 00:15 | Operative Note - Dictated ---
DATE OF OPERATION: 11/25/2017 PREOPERATIVE DIAGNOSIS: Uterine polyp. POSTOPERATIVE DIAGNOSIS: Uterine polyp. PROCEDURE PERFORMED: Video hysteroscopy with uterine polypectomy. SURGEON: Vipul Reno M.D. ANESTHESIA: General. ANESTHESIOLOGIST: Carmen Reinoso CRNA PROCEDURE IN DETAIL: After all the appropriate consents were signed, the patient was brought to the operating room, placed on the table in supine position. General anesthesia was induced without complication. The patient was then placed in a dorsal lithotomy position and prepped and draped in the usual fashion. The patient was examined. The cervix was identified and dilated to 8 mm Hegar. The uterine cavity was then entered with a video hysteroscope and hysteroscopy revealed endometrial polyp extending from the anterior wall of the uterus and partially protruding into the endocervix. At this time, under direct visualization, the endometrial polyp was grasped, and using a traction-countertraction technique, the polyp was removed from the cavity. Behind the endometrial polyp, however, there appeared to be an additional polyp just distal to the cervix and deeper into the cavity. This polyp was also grasped using traction-countertraction technique, removed from the cavity. Once this was completely removed, the specimen was submitted to pathology. Endocervical curettage was performed followed by endometrial curettage. The patient was then once again evaluated, the operative site was fully hemostatic. No additional polyps or endometrial pathology was noted. Instruments were removed, and the patient was placed in the supine position. The patient was awakened from general anesthesia and brought to the recovery room in excellent condition. She tolerated the procedure very well. Vipul Reno M.D. DR: CHARLENE JOB#: [id number] CC:
== END 2017-11-25 15:10 | disposition home or self-care (01) ==
LOC: SUR 09:28
DX: N84.0 Polyp of corpus uteri (principal); E11.9 Type 2 diabetes mellitus without complications; J45.909 Unspecified asthma, uncomplicated; G47.30 Sleep apnea, unspecified; F32.9 Major depressive disorder, single episode, unspecified; E78.00 Pure hypercholesterolemia, unspecified; I34.0 Nonrheumatic mitral (valve) insufficiency; I65.23 Occlusion and stenosis of bilateral carotid arteries; Z88.0 Allergy status to penicillin; Z88.2 Allergy status to sulfonamides; Z88.1 Allergy status to other antibiotic agents; Z91.040 Latex allergy status
CPT/HCPCS: 58558; 82962; J0694; J2250; J2405; J2704; J3010; 94003; 94150

== ENCOUNTER 2018-03-09 10:13 | Outpatient (CLI) | payer MEDICARE, MEDICAID ==
[~2018-03-09 10:13] MED LIST changes: +GARLIC1 EAC1 PO; -Lidocaine 1% MPF 10mg/ml 5ml ONE; +ONGLYZA5 MG PO; +PEPCID AC10 MG PO; -Propofol 200mg/20ml IV ONE; -cefOXitin Sod 2 GM in D5W 110 ML IVPB ONE; +fish oil PO
[2018-03-09 12:57] LABS: BASOPHILS % (AUTO) 0.6 % (0.0-2.0); EOSINOPHILS % (AUTO) 2.5 % (0.0-3.0); HEMATOCRIT 34.5 % (37.0-47.0); HEMOGLOBIN 11.8 G/DL (12.0-16.0); LYMPHOCYTES % (AUTO) 30.9 % (20.0-45.0); MEAN CORPUSCULAR VOLUME 88 FL (80-99); MONOCYTES % (AUTO) 10.2 % (1.0-10.0); NEUTROPHILS % (AUTO) 55.8 % (45.0-75.0); PLATELET COUNT 250 K/UL (150-450); RED BLOOD COUNT 3.91 M/UL (4.20-5.40); RED CELL DISTRIBUTION WIDTH 12.9 % (11.6-14.8); WHITE BLOOD COUNT 4.7 K/UL (4.8-10.8)
[2018-03-09 13:17] LABS: ALANINE AMINOTRANSFERASE 26 U/L (12-78); ALBUMIN 3.7 G/DL (3.4-5.0); ALKALINE PHOSPHATASE 28 U/L (46-116); ANION GAP 10 mmol/L (5-15); ASPARTATE AMINO TRANSFERASE 17 U/L (15-37); BILIRUBIN,TOTAL 0.3 MG/DL (0.2-1.0); BLOOD UREA NITROGEN 11 mg/dL (7-18); CALCIUM 9.6 MG/DL (8.5-10.1); CARBON DIOXIDE 27 MMOL/L (21-32); CHLORIDE 104 MMOL/L (98-107); CREATININE 0.6 MG/DL (0.55-1.30); POTASSIUM 4.1 MMOL/L (3.5-5.1); SODIUM 141 MMOL/L (136-145)
[2018-03-09 13:38] VITALS: BP 113/73
--- NOTE | 2018-03-09 14:51 | GI Progress Note ---
Assessment/Plan Problems: (1) Abdominal bloating ICD Codes: R14.0 - Abdominal distension (gaseous) SNOMED: 489856818 (2) GERD (gastroesophageal reflux disease) ICD Codes: K21.9 - Gastro-esophageal reflux disease without esophagitis SNOMED: 466267380 (3) Diarrhea ICD Codes: R19.7 - Diarrhea, unspecified SNOMED: 19873343 Status: stable Status Narrative Seen with Dr. Mishra Assessment/Plan Abdominal pelvis CT rule out cancer Labs drawn today; CBC, CMP, celiac panel, CEA Prescription for Xifaxan given Return to clinic in 2 weeks The patient was seen and examined at bedside and all new and available data was reviewed in the patients chart. I agree with the above findings, impression and plan. (Patient seen earlier today. Signature stamp does not reflect patient encounter time.). - Doron Mishra MD Subjective Subjective Patient has complaint of diarrhea, approximately 3-4 bowel movements per day. Documented as a [place] stool type #5 Patient is currently trying lactose-free diet She complains of abdominal bloating and belching Complains of weight loss Objective Last 24 Hour Vital Signs Date Time Temp Pulse Resp B/P (MAP) Pulse Ox O2 Delivery O2 Flow Rate FiO2 03/09/18 13:38 97.6 79 16 113/73 97 Weight 169 pounds Laboratory Tests Test 03/09/18 10:55 White Blood Count 4.7 K/UL (4.8-10.8) L Red Blood Count 3.91 M/UL (4.20-5.40) L Hemoglobin 11.8 G/DL (12.0-16.0) L Hematocrit 34.5 % (37.0-47.0) L Mean Corpuscular Volume 88 FL (80-99) Mean Corpuscular Hemoglobin 30.3 PG (27.0-31.0) Mean Corpuscular Hemoglobin Concent 34.3 G/DL (32.0-36.0) Red Cell Distribution Width 12.9 % (11.6-14.8) Platelet Count 250 K/UL (150-450) Mean Platelet Volume 5.5 FL (6.5-10.1) L Neutrophils (%) (Auto) 55.8 % (45.0-75.0) Lymphocytes (%) (Auto) 30.9 % (20.0-45.0) Monocytes (%) (Auto) 10.2 % (1.0-10.0) H Eosinophils (%) (Auto) 2.5 % (0.0-3.0) Basophils (%) (Auto) 0.6 % (0.0-2.0) Sodium Level 141 MMOL/L (136-145) Potassium Level 4.1 MMOL/L (3.5-5.1) Chloride Level 104 MMOL/L (98-107) Carbon Dioxide Level 27 MMOL/L (21-32) Anion Gap 10 mmol/L (5-15) Blood Urea Nitrogen 11 mg/dL (7-18) Creatinine 0.6 MG/DL (0.55-1.30) Estimat Glomerular Filtration Rate > 60 mL/min (>60) Glucose Level 152 MG/DL (74-106) H Calcium Level 9.6 MG/DL (8.5-10.1) Total Bilirubin 0.3 MG/DL (0.2-1.0) Aspartate Amino Transf (AST/SGOT) 17 U/L (15-37) Alanine Aminotransferase (ALT/SGPT) 26 U/L (12-78) Alkaline Phosphatase 28 U/L (46-116) L Total Protein 7.5 G/DL (6.4-8.2) Albumin 3.7 G/DL (3.4-5.0) Globulin 3.8 g/dL Albumin/Globulin Ratio 1.0 (1.0-2.7) Carcinoembryonic Antigen Pending Immunoglobulin A Pending Endomysial IgA Antibody Pending Tissue Transglutaminase IgA Ab Pending Anti-Gliadin IgA Antibody Pending General Appearance: WD/WN, no apparent distress, alert Cardiovascular: normal rate Respiratory/Chest: normal breath sounds, no respiratory distress Abdominal Exam: normal bowel sounds, non tender, soft Extremities: normal range of motion, non-tender Bailey Castellanos NP Mar 09, 2018 14:51
== END 2018-03-09 10:43 | disposition home or self-care (01) ==
LOC: PAN 10:13
DX: R14.0 Abdominal distension (gaseous) (principal); K21.9 Gastro-esophageal reflux disease without esophagitis; R19.7 Diarrhea, unspecified
CPT/HCPCS: 36415; 80053; 82378; 82784; 83516; 83520; 85025; 86255; G0463; 99213

== ENCOUNTER → 2018-03-11 | Outpatient (CLI) | payer MEDICARE, MEDICAID ==
--- NOTE | 2018-03-11 14:29 | Diagnostic Imaging Report ---
Clinical Indication: Pain, stomach gas, diarrhea, unwanted weight loss Technique: Patient given oral contrast. IV administration nonionic contrast. Venous phase spiral acquisition obtained through the abdomen and pelvis. Multiplanar reconstructions were generated. Total dose length product 724.08 mGycm. CTDIvol(s) 14.12 mGy. Dose reduction achieved using automated exposure control Comparison: 03/11/2017 Findings: The appendix is normal. There are are colonic diverticula. No evidence of diverticulitis. No small bowel distention. Contrast has not traversed the entirety of the small bowel. No free or loculated intraperitoneal gas or fluid is evident. There is a tiny fat-containing umbilical hernia. The distal esophagus, stomach, duodenum are unremarkable. The liver is hypoattenuating, consistent with fatty change. This is likely less striking than on the prior exam, however. No focal hepatic abnormality. The gallbladder demonstrates a folded appearance, as previously. No definite gallstones. No biliary ductal dilatation. The pancreas, spleen, adrenals, kidneys are all unremarkable. No retroperitoneal or mesenteric mass or adenopathy.. Uterus is enlarged with multiple fibroids, appearance similar to the prior exam. Calcifications are again demonstrated in the right ovary, more abundant than previously. No pelvic mass or adenopathy otherwise. The included lung bases demonstrate posterior dependent atelectatic changes on the right. The bones are unremarkable except for mild spondylosis changes. The highest cuts demonstrate left anterior chest wall asymmetry consistent with post mastectomy changes described previously Impression: No acute abnormality Fatty liver. This is slightly less severe than on the previous study of 03/04/2011 Enlarged fibroid uterus, also previously described Progressive right ovarian calcifications Postsurgical changes of the left breast The CT scanner at [facility] is accredited by the [employer] and the scans are performed using protocols designed to limit radiation exposure to as low as reasonably achievable to attain images of sufficient resolution adequate for diagnostic evaluation.
== END | disposition home or self-care (01) ==
LOC: CAT 10:08
DX: R19.7 Diarrhea, unspecified (principal); R63.4 Abnormal weight loss; K76.0 Fatty (change of) liver, not elsewhere classified; D25.9 Leiomyoma of uterus, unspecified; N83.8 Other noninflammatory disorders of ovary, fallopian tube and broad ligament; Z98.890 Other specified postprocedural states
CPT/HCPCS: 74177; Q9967

== ENCOUNTER 2018-07-27 10:10 | Outpatient (CLI) | payer MEDICARE, MEDICAID ==
--- NOTE | 2018-07-27 10:30 | General Progress Note ---
Assessment/Plan Problem List: (1) Family hx of colon cancer ICD Codes: Z80.0 - Family history of malignant neoplasm of digestive organs SNOMED: 445254540 (2) Colon polyps ICD Codes: K63.5 - Polyp of colon SNOMED: 99775570 (3) GERD (gastroesophageal reflux disease) ICD Codes: K21.9 - Gastro-esophageal reflux disease without esophagitis SNOMED: 866271457 (4) Abdominal bloating ICD Codes: R14.0 - Abdominal distension (gaseous) SNOMED: 402797979 (5) Lactase deficiency ICD Codes: E73.9 - Lactose intolerance, unspecified SNOMED: 426041916, 959060812 (6) Diarrhea ICD Codes: R19.7 - Diarrhea, unspecified SNOMED: 60692260 Assessment/Plan: good response to Viber[facility] no abd pain last colon in 2017 RTC in 3 months Subjective ROS Limited/Unobtainable: Yes Allergies: Coded Allergies: LACTOSE (Verified Allergy, Intermediate, diarhea, 01/05/17) LATEX (Verified Allergy, Intermediate, Itching, 01/05/17) SULFA (SULFONAMIDE ANTIBIOTICS) (Verified Allergy, Mild, RASH, 02/28/11) PENICILLINS (Verified Allergy, Unknown, 07/21/12) RASH TETRACYCLINES (Verified Allergy, Unknown, 01/05/17) Objective General Appearance: alert EENT: normal ENT inspection Neck: supple Cardiovascular: normal rate Respiratory/Chest: decreased breath sounds Abdomen: normal bowel sounds, non tender, soft Extremities: non-tender Doron Mishra MD Jul 27, 2018 10:30
[2018-07-27 13:15] VITALS: BP 126/78
== END 2018-07-27 12:10 | disposition home or self-care (01) ==
LOC: PAN 10:10
DX: K63.5 Polyp of colon (principal); K21.9 Gastro-esophageal reflux disease without esophagitis; R14.0 Abdominal distension (gaseous); E73.9 Lactose intolerance, unspecified; R19.7 Diarrhea, unspecified; Z80.0 Family history of malignant neoplasm of digestive organs; Z88.2 Allergy status to sulfonamides; Z88.0 Allergy status to penicillin; Z91.040 Latex allergy status; Z91.011 Allergy to milk products
CPT/HCPCS: 99212